=== PATIENT | male | born 1955 | race Caucasian/White ===

== ENCOUNTER 2024-05-15 09:16 | Emergency (ER) | payer MEDICARE, OTHER, SELFPAY ==
[2024-05-15 09:26] VITALS: BP 149/96
[2024-05-15 11:19] VITALS: BP 150/96
[2024-05-15 11:27] LABS: % Basophils 0.5 % (0-2); % Eosinophils 0.9 % (0-6); % Immature Granulocytes 0.2 % (0-0.5); % Lymphocytes 28.6 % (20.5-51.1); % Monocytes 7.1 % (1.7-9.3); % Neutrophils 62.7 % (42.2-75.2); Absolute Lymphocytes 1.2 10^3/uL (1.2-3.4); Absolute Monocytes 0.3 10^3/uL (0.1-0.6); Absolute Neutrophils 2.7 10^3/uL (1.4-6.5); Hematocrit 41.8 % (39.0-52.0); Hemoglobin 14.6 g/dL (13.0-18.0); Mean Corp Hgb Conc. 34.9 g/dL (33.0-37.0); Mean Corpuscular Hgb 31.1 pg (27.0-31.0); Mean Corpuscular Volume 89.1 fL (80.0-94.0); Mean Platelet Volume 10.3 fL (7.4-10.4); Nucleated Red Blood Cells % 0 % (-); Platelet Count 187 10^3/uL (130-400); Red Blood Cell Count 4.69 10^6/uL (4.70-6.10); Red Cell Dist. Width 12.6 % (11.5-14.5); White Blood Cell Count 4.3 10^3/uL (4.8-10.8)
--- NOTE | 2024-05-15 11:36 | ED.GENMED ---
History of Present Illness
General
Chief Complaint: Abdominal Pain
Source: patient
Exam Limitations: none
Time Seen by Provider: 05/15/24 10:51
Nursing documentation reviewed up to this point in time: agreed with
History of Present Illness
History of Present Illness:
68-year-old male with history of hyperlipidemia previous lymphoma
Says that he has had workup previously for chest discomfort that was suspected to be related to GERD, as he has had negative stress test, most recently about 2 years ago
But has never seen a GI doctor
Presents for epigastric pain into his left chest that started about 3 weeks ago. Patient said he did not really think much of it but he had been traveling. He was in [place] 2 weeks ago and suddenly had a severe episode of discomfort after eating
dinner. He says he was pacing most of the night because the pain was intense. It ultimately eased up and ever since then has come and gone at times. It seems to be little bit worse with eating but unrelated to exertion. He is able to perform
normal activities without any shortness of breath or pain. He has not had any vomiting, fever, diarrhea, changes in stool, palpitations or lightheadedness. Patient did fly out to [place] this past week and just returned yesterday. He is also
been battling a URI for the last several weeks. Patient says that he has had some symptom relief with NyQuil but he feels congested in his sinuses and nose get some postnasal drip and dry cough. Since flying home from [place] yesterday he has
felt like his ears are clogged, as if they did not fully pop after the sending in the airplane. He has had no significant pain or ear drainage. He has not tried any nasal decongestants or antihistamines
Past History
Past History
ED Past Medical History: Other (Lymphoma)
Social History
Tobacco: Non-smoker
Alcohol: Occasional
Drug: None
Personal:
Living: with family
Review of Systems
Review of Systems
Allergies reviewed?: Yes
All Other Systems: Not applicable
Phy Exam
Physical Exam
Physical Exam:
GENERAL: Alert , in no apparent distress
EYE: pupils equal and reactive
NECK: Supple
ENT: o/p clr, mmm.
CARDIAC: Regular rate and rhythm .
LUNGS: Clear breath sounds bilaterally, no acute respiratory distress, no wheezes/rales/rhonchi
ABDOMEN: Soft, without focal tenderness, no r/g, no cvat, normal bowel sounds
no significant tendenress
NEUROLOGICAL: Alert and oriented, no focal neuro deficits
SKIN: Warm and dry, skin intact.
MUSCULOSKELETAL: No edema, well perfused. neg cassius's sign
PSYCH: Normal and appropriate interaction.
Course
Orders/Labs/Results
Orders:
Orders
05/15/24 09:17
Electrocardiogram (*1) Urgent
Reason for Study: Chest Pain
EKG- Treatment ONCE
05/15/24 11:16
Complete Blood Count/With Diff Urgent
Comprehensive Metabolic Panel Urgent
Lipase Urgent
Comment: ADD ON
Troponin I Urgent
05/15/24 11:37
Add On- LAB Urgent
Tests Added?: lipase
Famotidine [Pepcid] 20 mg IV NOW STA
05/15/24 11:48
D-Dimer Urgent
05/15/24 12:35
CR Chest - 2 Views Urgent
Comment:
Reason For Exam: cough
05/15/24 13:01
COVID-19 Antigen Urgent
Source: Nasal Swab
Influenza A+B Rapid Molecular Urgent
HERLINDA Source: Nasal Swab
Specimen Description:
Abnormal Lab Results
05/15/24
11:16
WBC 4.3 L 10^3/uL
(4.8-10.8)
RBC 4.69 L 10^6/uL
(4.70-6.10)
MCH 31.1 H pg
(27.0-31.0)
Glucose 102 H mg/dl
(70-99)
AST 60 H U/L
(17-59)
ALT 74 H U/L
(0-50)
05/15/24 11:16
05/15/24 11:16
Vital Signs
Initial and Last Documented VS:
Initial Vital Signs
Temp Pulse Resp BP Pulse Ox
37.1 C 67 18 149/96 99
05/15/24 09:26 05/15/24 09:26 05/15/24 09:26 05/15/24 09:26 05/15/24 09:26
Last Documented Vital Signs
Temp Pulse Resp BP Pulse Ox
37.1 C 70 18 137/86 99
05/15/24 09:26 05/15/24 14:02 05/15/24 14:02 05/15/24 14:02 05/15/24 14:02
MDM/Problems Addressed
Differential Diagnosis Includes:
GERD, hiatal hernia, cholelithiasis, pancreatitis, ACS, PE
MDM/Problems Addressed:
68-year-old male with a history of hyperlipidemia presents for epigastric and chest discomfort intermittently over the last several weeks, slightly related to eating but also with an underlying respiratory illness over the last 3 weeks that has not
gone away despite some supportive therapy. Patient got concerned that maybe he should have his heart looked at. He has never seen a GI doctor. On exam the patient looks very well, he is mildly hypertensive 140s over 90s, no tachycardia, no
respiratory distress, pulse ox normal, he has an occasional cough with clear lungs with significant nasal mucosal edema and erythema some sinus congestion,
EKG sinus rhythm in the 60s with nonspecific ST segment V5 and V6, some flattening of 3 and aVF without old EKG to compare to. Given the chronicity of this discomfort he has been feeling is unlikely to be ACS, is not exertional in his troponin is
negative
D-dimer was negative
Chest x-ray independently reviewed by me was clear without evidence of pneumonia. His labs are consistent with a viral URI, with mild leukopenia and a mild transaminitis. He has a normal lipase and no abdominal tenderness and no vomiting. I
discussed workup with an ultrasound with patient declined. Probably was an underlying viral illness however given the length of symptoms over 3 weeks we will cover him with antibiotics for sinusitis and recommend GERD diet, GI follow-up and PPI
*Critical Care Note
Total Time (30-74mins, 75-104mins- exclusive of procedures): Not Applicable
ED Attending Note
-
Portions of this chart may have been created with voice recognition software.� Occasional wrong word or��sound alike� substitutions may have occurred due to the inherent limitations of voice recognition software.
Discharge Plan
Departure
Patient Disposition: Home (Routine Discharge)
Date of Disposition: 05/15/24
Time of Disposition: 13:38
Patient with high blood pressure during this ER visit?: Yes
Condition: Fair
Covid-19: Not Applicable
Discharge Problem:
Sinusitis, Chest pain due to GERD
Instructions: Acid Reflux and GERD in Adults (DC), Sinusitis in adults - ED discharge instructions, BLOOD PRESSURE
Prescriptions:
New
amoxicillin-pot clavulanate 875-125 mg tablet
1 tab PO BID Qty: 14 0RF
fluticasone propionate [Flonase Allergy Relief] 50 mcg/actuation spray,suspension
2 spray intranasal DAILY Qty: 16 0RF
pantoprazole [Protonix] 40 mg tablet,delayed release (DR/EC)
40 mg PO DAILY Qty: 14 0RF
Referrals:
UNKNOWN - PT DOES,NOT KNOW [Family Provider] -
Activity Restrictions/Additional Instructions:
YOUR BLOOD WORK SHOWS MILD ELEVATION OF YOUR LIVER MARKERS AND A SLIGHTLY LOW WHITE BLOOD CELL COUNT THAT CAN BE RELATED TO VIRAL ILLNESS
IT IS VERY IMPORTANT TO FOLLOW UP WITH YOUR FAMILY DOCTOR
YOU HAD NO SIGNS OF A HEART ATTACK AND NO SIGNS OF A BLOOD CLOT
YOUR PAINS MAY BE DUE TO YOUR STOMACH AND ACID REFLUX
YOUS HOULD SEE A GI DOCTOR AN OUTPATIENT, AVOID SPICY FOODS/EATING LATE AT NIGHT, ALCOHOL, NSAIDS, THAT CAN UPSET YOUR STOMACH
TRY PROTONIX 40 MG ONCE A DAY ON AN EMPTY STOMACH FOR 7-14 DAYS TO SEE IF THIS HELPS
YOU MAY NEED MORE TESTING IF YOUR LIVER MARKERS ELEVATE HIGHER.
RETURN FOR: WORSENING CHEST PAIN, SHORTNESS OF BREATH, VOMITNG, BLACK STOOL, SIGNIFICANT ABDOMINAL PAIN, OR ANY CONCERNS.
Interventions
Interventions:
*Risk Screen - Suicide Last Done: 05/15/24 09:26
*General Assessment Last Done: 05/15/24 09:26
*Neglect/Abuse Screening Last Done: 05/15/24 09:26
*Nursing Disposition Last Done: 05/15/24 14:03
UU-Edufri-[id number] Assessment Last Done: 05/15/24 11:19
Discharge Date and Time
Discharge Date/Time: 05/15/24 14:04
Print Language: DIVEHI
[2024-05-15 11:49] VITALS: BMI 28.2
[2024-05-15 11:49] LABS: ALT (SGPT) 74 U/L (0-50); AST (SGOT) 60 U/L (17-59); Albumin 4.6 g/dl (3.5-5.0); Alkaline Phosphatase 88 U/L (38-126); Blood Urea Nitrogen 16 mg/dl (9-20); Calcium 9.1 mg/dl (8.4-10.2); Carbon Dioxide 29 mmol/L (22-30); Chloride 101 mmol/L (98-107); Glucose 102 mg/dl (70-99); Potassium 4.4 mmol/L (3.5-5.1); Sodium 140 mmol/L (135-145); Total Bilirubin 0.7 mg/dl (0.2-1.3); Total Protein 7.6 g/dl (6.3-8.2); eGFR > 60.00
[2024-05-15 12:00] LABS: Troponin I < 0.012 ng/ml
[2024-05-15 12:40] LABS: Lipase 44 U/L (23-300)
[2024-05-15 13:26] LABS: COVID-19 Antigen Negative (Negative)
[2024-05-15 14:02] VITALS: BP 137/86
== END 2024-05-15 14:04 | disposition home or self-care (01) ==
LOC: EMR 09:16
PROVIDERS: Physician Assistant; EMERGENCY PHYSICIAN Emergency Medicine
DX: J32.9 Chronic sinusitis, unspecified (principal); R07.89 Other chest pain; K21.9 Gastro-esophageal reflux disease without esophagitis; R10.9 Unspecified abdominal pain; E78.00 Pure hypercholesterolemia, unspecified
CPT/HCPCS: 99283; 71046; 80053; 83690; 84484; 85025; 85379; 87502; 87811; 93005